=== PATIENT | male | born 1975 ===

== ENCOUNTER 2024-03-22 00:49 | Day surgery (SDC) | payer OTHER, SELFPAY ==
[2024-03-17 10:36] VITALS: BMI 24.8
[2024-03-22 07:46] VITALS: BP 142/92; PULSE 102; RESP 19; O2SAT 100; BMI 25.2
[2024-03-22] MEDS: LACTATED RINGERS 1,000 ML 150 ML IV CONT (07:56)
--- NOTE | 2024-03-22 09:28 | WPDANESEPPF ---
Anes - Initial Pre Proc Eval Procedure: Operation Date: 03/22/24 09:00 Proposed Procedures p Colonoscopy - Yoel Adams MD Date/Time: 03/22/24 09:28 Surgeon: Yoel Adams MD Pre Op Diagnosis: Positive Cologuard Patient Data Age: 48 Gender: M Height: 1.83 m Weight: 84.4 kg Last Vital Signs Pulse 102 H 03/22/24 07:46 Resp 19 03/22/24 07:46 BP 142/92 H 03/22/24 07:46 Pulse Ox 100 03/22/24 07:46 O2 Del Method Room Air 03/22/24 07:46 Allergies Allergy/AdvReac Type Severity Reaction Status Date / Time No Known Allergies Allergy Verified 03/22/24 07:44 Home Medications Medication Instructions Recorded Confirmed Type atorvastatin 10 mg tablet 10 mg PO DAILY 03/17/24 03/22/24 History Patient hx anesthesia problems: none Family hx anesthesia problems: none Results Review: All pre-operative results and documents have been reviewed as part of the pre-operative evaluation. [facility] Social History Social History Living arrangements: incarcerated Anes - Eval Final PreProcedure Day of Procedure 03/22/24 09:28 Patient weight: overweight Heart: regular rate and rhythm Lungs: clear to auscultation Airway: Mallampati scale class 1 Neurological: alert and oriented Last oral intake: >/= 8 hours ASA classification: II Emergent: no Anesthetic plan: proceed Anesthesia type and monitoring: general GIVS Results Review: All pre-operative results and documents have been reviewed as part of the pre-operative evaluation. Informed Consent: The patient's anesthetic plan and its attendant risks and benefits were discussed with the patient/family/POA. Questions were solicited and answers provided to the satisfaction of the patient/family/POA.
--- NOTE | 2024-03-22 09:29 | PM.HPGS ---
History of Present Illness History of Present Illness Consent: Risks, benefits, and alternatives have been discussed and questions answered. Patient agrees to proceed with procedure. Chief complaint: Positive Cologuard Narrative: Edu Cao is a 48 year old male here for first colonoscopy, + cologuard. He is a prisoner Review of Systems Review of Systems: All systems reviewed & are unremarkable except as noted in HPI and below PMFSH Past Medical History Medical History (Updated 03/22/24 @ 09:31 by Yoel Adams MD) Positive colorectal cancer screening using Cologuard test Social History Social History Living arrangements: incarcerated Meds Home Medications and Allergies Home Medications Medication Instructions Recorded Confirmed Type atorvastatin 10 mg tablet 10 mg PO DAILY 03/17/24 03/22/24 History Allergies Allergy/AdvReac Type Severity Reaction Status Date / Time No Known Allergies Allergy Verified 03/22/24 07:44 Vital Signs Vital Signs - 24 hr 03/22/24 07:46 Pulse Rate 102 H Respiratory Rate 19 Blood Pressure 142/92 H Pulse Oximetry 100 Oxygen Delivery Room Air Exam Const: General: comfortable and no acute distress HENMT: Face/Nose/Sinus: Normal nares present Eyes: General: appearance normal, both eyes and all related structures Neck: Neck: no JVD Resp: Auscultation: clear to auscultation bilaterally Cardio: Rate: regular rate Rhythm: regular rhythm GI: Inspection: non-distended GI Palp: Yes Soft to palpation Skin: General skin exam: normal color Neuro: General: gait normal Speech: normal speech Extrem: General: normal to inspection Psych: Mental Status: mental status grossly normal Assessment and Plan Assessment and plan (1) Positive colorectal cancer screening using Cologuard test: Code(s): R19.5 - Other fecal abnormalities Status: Acute Assessment and Plan: colonoscopy
[2024-03-22 09:44] VITALS: BP 105/76; PULSE 84; RESP 14; O2SAT 97
[2024-03-22 09:54] VITALS: BP 106/71; PULSE 86; RESP 16; O2SAT 98
[2024-03-22 10:04] VITALS: BP 115/81; PULSE 77; RESP 23; O2SAT 99
== END 2024-03-22 10:08 | disposition home or self-care (01) ==
PROVIDERS: Visit Provider Internal Medicine Gastroenterology
PROC: 0DJD8ZZ Inspection of Lower Intestinal Tract, Via Natural or Artificial Opening Endoscopic (ICD-10-PCS; CPT 45378; principal; 2024-03-22 09:00)
DX: R19.5 Other fecal abnormalities (principal); K57.30 Diverticulosis of large intestine without perforation or abscess without bleeding; K64.8 Other hemorrhoids
CPT/HCPCS: 45378; J2704; J7120